=== PATIENT | female | born 1930 | race Caucasian/White ===

== ENCOUNTER 2016-08-22 11:14 | Observation (INO) | payer MEDICARE, OTHER ==
[~2016-08-22] VITALS: Ht 157.5 cm; Wt 45.6 kg
[2016-08-22] VITALS (9 sets, daily range): BP systolic 82–116; BP diastolic 49–80; PULSE 60–125; RESP 17–20; TEMP 96.7–97.9; O2SAT 95–100
[~2016-08-22 11:14] MED LIST: ALPH0.1S EACH EYE; DIFL0.0512 EACH EYE; LANS30CA PO; LEVO50TA4 PO; METHE500 PO; MIRA33504 PO; OXYB10TA PO; RANI150T PO; SYST0.4D2 EACH EYE; TEMA15CA PO; XARE15TA PO
[2016-08-22] MEDS ORDERED: TOVI4TAB PO (11:34)
[2016-08-22] MEDS ORDERED: SODIUM CHLOR 0.9% 1000 ML INJ 1,000 ML IV ONE (11:45)
--- NOTE | 2016-08-22 11:56 | PD ---
HPI Chief Complaint: Cardiac Complaint Time Seen by Provider: 11:27 Travel History International Travel<30 days: No Contact w/Intl Traveler<30days: No Traveled to known affect area: No History of Present Illness HPI This is an 86-year-old female who presents the emergency department with palpitations, lightheadedness and dizziness that started this morning. She said she started walking to the bathroom when she felt like her heart was racing and she felt like she was going into a tunnel. She says the lightheadedness gets much worse when she sits up or stands up. She feels best when she is laying flat in bed. She denies any shortness of breath. She did have an episode this morning where she had some pain that went from her right shoulder return her left and lasted for several seconds. She's never had pain like that before. She is not sure if she has atrial fibrillation. She thinks she was told one time that she had an episode and she was put on a medication which she couldn't tolerate it so she discontinued it. 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 She is on Xarelto also but she's not sure what for. She has been feeling somewhat unwell over the past few months with generalized weakness, loose stools and abdominal pain. She just had an endoscopy this week with a dilated her esophagus. PFSH Past Medical History Hx Anticoagulant Therapy: Yes (XARELTO) Atrial Fibrillation: Yes Anxiety: Yes Cardiovascular Problems: Yes (PACEMAKER) Chemotherapy: No Cerebrovascular Accident: Yes (TIA) Diabetes: No Diminished Hearing: Yes Gastrointestinal Disorders: Yes (CROHNS- gastroparesis) GERD: Yes Glaucoma: Yes (left eye) Genitourinary: Yes ("bladder problems") Respiratory: No Immunizations Current: No Migraines: Yes Thyroid Disease: Yes Menopausal: Yes Past Surgical History Appendectomy: Yes (194) Cardiac Surgery: Yes (PACEMAKER INSERTION- approx revised 6 yrs ago) Eye Surgery: Yes (CATARACT:RIGHT EYE 2001, LEFT EYE 2008) Hysterectomy: Yes Pacemaker: Yes (1985,three total) Social History Alcohol Use: Yes ("OCCASIONAL GLASS OF RED WINE WITH DINNER.") Tobacco Use: No (quit 30+ yrs ago smoked cigs) Substance Use: No Allergies-Medications (Allergen,Severity, Reaction): Coded Allergies: Aspirin (Verified Allergy, Severe, "throat closes", 2/6/17) Codeine (Verified Allergy, Severe, "throat closes", 08/22/16) Iodine (Verified Allergy, Severe, hives,throat swelling,sob, 08/22/16) Morphine (Verified Allergy, Severe, "throat closes", 08/22/16) Vancocin (Verified Allergy, Severe, 08/22/16) Vancomycin (Verified Allergy, Severe, 08/22/16) Ancef (Verified Adverse Reaction, Severe, "head", 08/22/16) Penicillin (Verified Adverse Reaction, Severe, "swelling of joints", ) Pentothal (Verified Adverse Reaction, Severe, "headache", 08/22/16) Reported Meds & Prescriptions Reported Meds & Active Scripts Active Reported Toviaz ER (Fesoterodine Fumarate) 4 mg Dolores 4 Mg PO DAILY Durezol Opth (Difluprednate Opth) 0.05% Emul 1 Drop EACH EYE BID Systane Gel Opth (Polyethylene Glycol-Propylene Opth) 0.4-0.3% Drops 1 Drop EACH EYE DAILY Lansoprazole 30 Mg Capdr 30 Mg PO DAILY Miralax Powder (Polyethylene Glycol 3350 Powder) 17 Gm Powd 17 Gm PO DAILY Mix and dissolve one measuring cap-ful (17 grams) in water or juice. Temazepam 15 Mg Cap 15 Mg PO HS PRN Xarelto (Rivaroxaban) 15 Mg Tab 5 Mg PO DAILY Methenamine Mandelate 500 Mg Tab 500 Mg PO BID Ranitidine (Ranitidine HCl) 150 Mg Tab 150 Mg PO BID Levothyroxine (Levothyroxine Sodium) 50 Mcg Tab 50 Mcg PO DAILY Review of Systems Except as stated in HPI: all other systems reviewed are Neg Physical Exam Narrative GENERAL: Frail elderly female in no acute distress SKIN: Pale, dry with skin tenting. HEAD: Atraumatic. Normocephalic. EYES: Pupils equal and round. No injection or drainage. ENT: Dry mucous membranes NECK: Trachea midline. CARDIOVASCULAR: Irregularly irregular. No murmur appreciated. RESPIRATORY: Clear to auscultation. Breath sounds equal bilaterally. GASTROINTESTINAL: Abdomen soft, non-tender, nondistended. MUSCULOSKELETAL: No obvious deformities. NEUROLOGICAL: Awake and alert. No obvious cranial nerve deficits. Moving all extremities. PSYCHIATRIC: Appropriate mood and affect; insight and judgment normal. Data Data Last Documented VS Vital Signs Date Time Temp Pulse Resp B/P Pulse Ox O2 Delivery O2 Flow Rate FiO2 08/22/16 12:43 90 20 100/72 96 08/22/16 11:30 97.9 Orders Complete Blood Count With Diff (08/22/16 11:36) Comprehensive Metabolic Panel (08/22/16 11:36) Thyroid Stimulating Hormone (08/22/16 11:36) Troponin I (08/22/16 11:36) Electrocardiogram (08/22/16 ) Urinalysis - C+S If Indicated (08/22/16 11:36) Cath For Specimen (08/22/16 11:36) Orthostatic Vital Signs (08/22/16 11:36) Sodium Chlor 0.9% 1000 Ml Inj (Ns 1000 M (08/22/16 11:45) Chest, Single Ap (08/22/16 ) Admit Order (Ed Use Only) (08/22/16 13:09) Place In Observation (08/22/16 ) Vital Signs (Adult) Q4H (08/22/16 13:09) Activity Oob With Assistance (08/22/16 13:09) Smeller / Telemetry .CONTINUOUS (08/22/16 13:09) Diet Heart Healthy (08/22/16 Lunch) Sodium Chlor 0.9% 1000 Ml Inj (Ns 1000 M (08/22/16 14:00) Sodium Chloride 0.9% Flush (Ns Flush) (08/22/16 13:15) Sodium Chloride 0.9% Flush (Ns Flush) (08/22/16 21:00) Acetaminophen (Tylenol) (08/22/16 13:15) Ondansetron Inj (Zofran Inj) (08/22/16 13:15) Basic Metabolic Panel (Bmp) (08/23/16 06:00) Creatine Kinase (Cpk) (08/22/16 13:09) Creatine Kinase (Cpk) (08/22/16 19:09) Troponin I (08/22/16 13:09) Troponin I (08/22/16 19:09) Pt Request For Service (08/22/16 13:09) Naloxone Inj (Narcan Inj) (08/22/16 13:15) Digoxin (Lanoxin) (08/22/16 13:15) Labs Laboratory Tests Test 08/22/16 08/22/16 11:45 12:30 White Blood Count 4.4 TH/MM3 Red Blood Count 3.76 MIL/MM3 Hemoglobin 10.8 GM/DL Hematocrit 33.3 % Mean Corpuscular Volume 88.6 FL Mean Corpuscular Hemoglobin 28.8 PG Mean Corpuscular Hemoglobin 32.5 % Concent Red Cell Distribution Width 13.4 % Platelet Count 198 TH/MM3 Mean Platelet Volume 7.3 FL Neutrophils (%) (Auto) 60.3 % Lymphocytes (%) (Auto) 21.4 % Monocytes (%) (Auto) 10.9 % Eosinophils (%) (Auto) 6.0 % Basophils (%) (Auto) 1.4 % Neutrophils # (Auto) 2.6 TH/MM3 Lymphocytes # (Auto) 0.9 TH/MM3 Monocytes # (Auto) 0.5 TH/MM3 Eosinophils # (Auto) 0.3 TH/MM3 Basophils # (Auto) 0.1 TH/MM3 CBC Comment DIFF FINAL Differential Comment Sodium Level 145 MEQ/L Potassium Level 4.0 MEQ/L Chloride Level 110 MEQ/L Carbon Dioxide Level 25.9 MEQ/L Anion Gap 9 MEQ/L Blood Urea Nitrogen 13 MG/DL Creatinine 0.94 MG/DL Estimat Glomerular Filtration 56 ML/MIN Rate Random Glucose 101 MG/DL Calcium Level 8.3 MG/DL Total Bilirubin 0.3 MG/DL Aspartate Amino Transf 21 U/L (AST/SGOT) Alanine Aminotransferase 14 U/L (ALT/SGPT) Alkaline Phosphatase 40 U/L Troponin I 0.02 NG/ML Total Protein 6.3 GM/DL Albumin 2.9 GM/DL Thyroid Stimulating Hormone 2.060 uIU/ML 3rd Gen Urine Color STRAW Urine Turbidity CLEAR Urine pH 6.5 Urine Specific [place] 1.006 Urine Protein NEG mg/dL Urine Glucose (UA) NEG mg/dL Urine Ketones NEG mg/dL Urine Occult Blood NEG Urine Nitrite NEG Urine Bilirubin NEG Urine Leukocyte Esterase NEG Urine WBC 0-2 /hpf Urine Hyaline Casts 3-5 /lpf Urine Mucus FEW /lpf Microscopic Urinalysis Comment CATH-CULT NOT IND MDM Medical Decision Making Medical Screen Exam Complete: Yes Emergency Medical Condition: Yes Interpretation(s) Afebrile, tachycardic, normotensive Mild anemia Electrolytes are reassuring Urinalysis is negative for infection EKG: Atrial fibrillation with RVR Differential Diagnosis Atrial fibrillation, orthostatic hypotension, dehydration, urinary tract infection Narrative Course This is an 86-year-old female who presents to the emergency department with palpitations that started today. She has evidence of atrial fibrillation on her EKG. She is placed in a monitor and an IV was established. Labs are obtained which are reassuring. Heart heart rate is in the 100s to 120 range but she appears very dehydrated and she somewhat hypotensive. She is given a liter of IV hydration. I think she requires observation on telemetry with gentle rate control and I suspect her symptoms are in the setting of atrial fibrillation. Diagnosis Primary Impression: Atrial fibrillation with RVR Admitting Information Admitting Physician Requests: Observation Lilian Webster MD Aug 22, 2016 11:56
[2016-08-22 12:02] LABS: AUTOMATED NEUTROPHIL # 2.6 TH/MM3 (1.8-7.7); BASOPHIL # 0.1 TH/MM3 (0-0.2); BASOPHIL % 1.4 % (0.0-2.0); EOSINOPHIL # 0.3 TH/MM3 (0-0.4); HEMATOCRIT 33.3 % (35.0-46.0); HEMO FLAGS DIFF FINAL; LYMPH % 21.4 % (9.0-44.0); LYMPHOCYTE # 0.9 TH/MM3 (1.0-4.8); MEAN CELL VOLUME 88.6 FL (80.0-100.0); MEAN CORPUSCULAR HEMOGLOBIN 28.8 PG (27.0-34.0); MEAN CORPUSCULAR HGB CONC 32.5 % (32.0-36.0); MONO % 10.9 % (0.0-8.0); NEUT % 60.3 % (16.0-70.0); PLATELET COUNT 198 TH/MM3 (150-450); RED BLOOD COUNT 3.76 MIL/MM3 (4.00-5.30); RED CELL DISTRIBUTION WIDTH 13.4 % (11.6-17.2); WHITE BLOOD COUNT 4.4 TH/MM3 (4.0-11.0)
[2016-08-22 12:16] LABS: CHLORIDE 110 MEQ/L (98-107); SODIUM (NA) 145 MEQ/L (136-145)
[2016-08-22 12:21] LABS: ANION GAP 9 MEQ/L (5-15); BICARBONATE 25.9 MEQ/L (21.0-32.0)
[2016-08-22 12:22] LABS: BLOOD UREA NITROGEN 13 MG/DL (7-18)
[2016-08-22 12:24] LABS: ALT (GPT) 14 U/L (10-53); AST (GOT) 21 U/L (15-37); GLOMERULAR FILTRATION RATE 56 ML/MIN (>89)
[2016-08-22 12:26] LABS: TOTAL BILIRUBIN ADULT 0.3 MG/DL (0.2-1.0)
[2016-08-22 12:27] LABS: ALKALINE PHOSPHATASE 40 U/L (45-117)
[2016-08-22 12:44] LABS: BLOOD, URINE NEG (NEG); GLUCOSE,URINE NEG (NEG); KETONE, URINE NEG (NEG); NITRITE,URINE NEG (NEG); PH, URINE 6.5 (5.0-8.5)
[2016-08-22 12:51] LABS: URINE COLOR STRAW (YELLW/STRAW)
[2016-08-22 12:53] LABS: COMMENT (UR) CATH-CULT NOT IND; CULTURE IF INDICATED CATH CULTURE NOT IND; MUCUS URINE FEW /lpf (OCC); WBC, URINE 0-2 /hpf (0-5)
[2016-08-22] MEDS ORDERED: SODIUM CHLORIDE 0.9% FLUSH 5 ML FLUSH FLUSH PRN (13:15)
[2016-08-22] MEDS ORDERED: TEMAZEPAM 15 MG CAP PO PRN (13:15)
[2016-08-22] MEDS ORDERED: ACETAMINOPHEN 325 MG TAB PO PRN (13:15)
[2016-08-22] MEDS ORDERED: NALOXONE HCL 0.4 MG/ML AMP IV PRN (13:15)
[2016-08-22] MEDS ORDERED: ONDANSETRON HCL 4 MG/2 ML VIAL IVP PRN (13:15)
[2016-08-22] MEDS: DIGOXIN 0.125 MG TAB PO SCH (13:28)
--- NOTE | 2016-08-22 13:35 | RADHPO ---
EXAM DATE/TIME: 08/22/2016 12:55 [facility] COMPARISON: CHEST SINGLE AP, July 07, 2016, 21:52. INDICATIONS: Heart palpitations. MEDICAL HISTORY: Cerebrovascular disease. Crohn's disease. Gastroparesis. GERD. TIA.A-fib. SURGICAL HISTORY: Pacemaker. Appendectomy. Hysterectomy. ENCOUNTER: Initial ACUITY: 1 day PAIN SCORE: 0/10 LOCATION: Bilateral chest FINDINGS: Pacemaker is implanted in the left chest. Heart is minimally enlarged. Pulmonary vascularity is nor mal. Scattered granulomas are seen in the right base. Portion of bony skeleton visualized shows only degenerative changes. CONCLUSION: Mild compensated cardiomegaly. Olegario Spencer MD FACR on August 22, 2016 at 13:30 Board Certified Radiologist. This report was verified electronically.
[2016-08-22] MEDS: SODIUM CHLOR 0.9% 1000 ML INJ 1,000 ML IV SCH ×2 (14:02→23:19)
--- NOTE | 2016-08-22 14:06 | HHI.HP ---
[facility] Primary Care Physician Jennifer Gibbs MD Admission Diagnosis lightheadedness, atrial fibrillation Diagnoses: (1) Atrial fibrillation with RVR Travel History International Travel<30 Days: No Contact w/Intl Traveler <30 Da: No Traveled to Known Affected Are: No History of Present Illness This is a very pleasant 86 year-old female with past medical history of hypothyroidism, pacemaker for arrhythmia who presents to the ER today complaining of a several day history of intermittent palpitations with lightheadedness. The patient states that she has been getting these episodes for several days. She chronically has low blood pressure and often feels dizzy when she stands up. 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 The patient states that she had an episode of atrial fibrillation once 4 years ago. She does take Xarelto but only 5 mg per day. She denies any chest pain, ankle edema. Denies any recent falls although she did have to sit down several days ago to ease the dizziness. She lives with her son. She last saw Dr. Smith 3 weeks ago. In the emergency department she was found to be in atrial fibrillation with rate anywhere from 80-120. She did not receive any Cardizem because her blood pressure was borderline low. Review of Systems Constitutional: COMPLAINS OF: Dizziness, DENIES: Fever, Chills Respiratory: DENIES: Cough, Shortness of breath Cardiovascular: COMPLAINS OF: Palpitations, DENIES: Chest pain Gastrointestinal: DENIES: Abdominal pain, Vomiting Genitourinary: DENIES: Urgency, Dysuria Musculoskeletal: DENIES: Back pain, Neck pain Neurologic: DENIES: Abnormal gait, Headache, Localized weakness Psychiatric: DENIES: Anxiety, Confusion Past Family Social History Past Medical History Paroxysmal atrial fibrillation Pacemaker History of diverticulitis Gastroparesis Esophageal stricture status post recent dilation Frequent UTIs History of TIAs Urinary incontinence Past Surgical History Pacemaker, hysterectomy, appendectomy Reported Medications Allergies Coded Allergies Type Severity Reaction Last Updated Verified Aspirin Allergy Severe "throat closes" 08/22/16 Yes Codeine Allergy Severe "throat closes" 08/22/16 Yes Iodine Allergy Severe hives,throat swelling,sob 08/22/16 Yes Morphine Allergy Severe "throat closes" 08/22/16 Yes Vancocin Allergy Severe 08/22/16 Yes Vancomycin Allergy Severe 08/22/16 Yes Ancef Adverse Reaction Severe "head" 08/22/16 Yes Penicillin Adverse Reaction Severe "swelling of joints" 08/22/16 Yes Pentothal Adverse Reaction Severe "headache" 08/22/16 Yes Active Scripts Medications Dose Route/Sig Days Date Category Dose Instructions Toviaz ER (Fesoterodine Fumarate) 4 mg Dolores 4 Mg PO DAILY 08/22/16 Reported Durezol Opth (Difluprednate Opth) 0.05% Emul 1 Drop EACH EYE BID 07/07/16 Reported Systane Gel Opth (Polyethylene Glycol-Propylene Opth) 0.4-0.3% Drops 1 Drop EACH EYE DAILY 07/07/16 Reported Lansoprazole 30 Mg Capdr 30 Mg PO DAILY 07/07/16 Reported Miralax Powder (Polyethylene Glycol 3350 Powder) 17 Gm Powd 17 Gm PO DAILY 07/07/16 Reported Mix and dissolve one measuring cap-ful (17 grams ) in water or juice. Temazepam 15 Mg Cap 15 Mg PO HS PRN 07/07/16 Reported Xarelto (Rivaroxaban) 15 Mg Tab 5 Mg PO DAILY 07/07/16 Reported Methenamine Mandelate 500 Mg Tab 500 Mg PO BID 07/07/16 Reported Ranitidine (Ranitidine HCl) 150 Mg Tab 150 Mg PO BID 07/07/16 Reported Levothyroxine (Levothyroxine Sodium) 50 Mcg Tab 50 Mcg PO DAILY 07/07/16 Reported Allergies: Coded Allergies: Aspirin (Verified Allergy, Severe, "throat closes", 08/22/16) Codeine (Verified Allergy, Severe, "throat closes", 08/22/16) Iodine (Verified Allergy, Severe, hives,throat swelling,sob, 08/22/16) Morphine (Verified Allergy, Severe, "throat closes", 08/22/16) Vancocin (Verified Allergy, Severe, 08/22/16) Vancomycin (Verified Allergy, Severe, 08/22/16) Ancef (Verified Adverse Reaction, Severe, "head", 08/22/16) Penicillin (Verified Adverse Reaction, Severe, "swelling of joints", ) Pentothal (Verified Adverse Reaction, Severe, "headache", 08/22/16) Family History Reviewed and noncontributory Social History She quit smoking 45 years ago after smoking for 25 years. Physical Exam Vital Signs Vital Signs Date Time Temp Pulse Resp B/P Pulse Ox O2 Delivery O2 Flow Rate FiO2 08/22/16 13:37 125 20 104/55 100 08/22/16 12:43 90 20 100/72 96 08/22/16 11:51 103 20 82/63 122 20 107/80 08/22/16 11:30 97.9 122 20 101/68 100 Physical Exam GENERAL: Well-nourished, well-developed very pleasant elderly petite female patient in no apparent distress. SKIN: Warm and dry. HEAD: Normocephalic. EYES: No scleral icterus. No injection or drainage. NECK: Supple, trachea midline. No JVD or lymphadenopathy. CARDIOVASCULAR: Irregularly irregular rate without murmurs rubs or gallops. RESPIRATORY: Breath sounds equal and clear to auscultation bilaterally. No accessory muscle use. GASTROINTESTINAL: Abdomen soft, non-tender, nondistended. EXTREMITIES: No cyanosis, or edema. NEUROLOGICAL: Awake, alert, and oriented x 3. Non-focal. Laboratory Laboratory Tests Test 08/22/16 08/22/16 11:45 12:30 White Blood Count 4.4 Red Blood Count 3.76 Hemoglobin 10.8 Hematocrit 33.3 Mean Corpuscular Volume 88.6 Mean Corpuscular Hemoglobin 28.8 Mean Corpuscular Hemoglobin 32.5 Concent Red Cell Distribution Width 13.4 Platelet Count 198 Mean Platelet Volume 7.3 Neutrophils (%) (Auto) 60.3 Lymphocytes (%) (Auto) 21.4 Monocytes (%) (Auto) 10.9 Eosinophils (%) (Auto) 6.0 Basophils (%) (Auto) 1.4 Neutrophils # (Auto) 2.6 Lymphocytes # (Auto) 0.9 Monocytes # (Auto) 0.5 Eosinophils # (Auto) 0.3 Basophils # (Auto) 0.1 CBC Comment DIFF FINAL Differential Comment Sodium Level 145 Potassium Level 4.0 Chloride Level 110 Carbon Dioxide Level 25.9 Anion Gap 9 Blood Urea Nitrogen 13 Creatinine 0.94 Estimat Glomerular Filtration 56 Rate Random Glucose 101 Calcium Level 8.3 Total Bilirubin 0.3 Aspartate Amino Transf 21 (AST/SGOT) Alanine Aminotransferase 14 (ALT/SGPT) Alkaline Phosphatase 40 Troponin I 0.02 Total Protein 6.3 Albumin 2.9 Thyroid Stimulating Hormone 2.060 3rd Gen Urine Color STRAW Urine Turbidity CLEAR Urine pH 6.5 Urine Specific [place] 1.006 Urine Protein NEG Urine Glucose (UA) NEG Urine Ketones NEG Urine Occult Blood NEG Urine Nitrite NEG Urine Bilirubin NEG Urine Leukocyte Esterase NEG Urine WBC 0-2 Urine Hyaline Casts 3-5 Urine Mucus FEW Microscopic Urinalysis Comment CATH-CULT NOT IND Result Diagram: 08/22/16 1145 08/22/16 1145 Assessment and Plan Assessment and Plan -Atrial fibrillation with mildly elevated ventricular rate associated with palpitations lightheadedness and dizziness - I discussed with Dr. Smith. He will be having his nurse and office records over. He agrees with loading her with a small dose of digoxin. Continue Xarelto. Additionally will hydrate her lightly overnight. Get a PT evaluation. She can likely be discharged home tomorrow if she is doing well. -Gastroparesis -Esophageal stricture status post recent dilation -Frequent UTIs -History of TIAs -Urinary incontinence -DVT prophylaxis. Will continue on Xarelto Nevaeh Knowles MD Aug 22, 2016 14:06
[2016-08-22] MEDS ORDERED: DIGOXIN 0.125 MG TAB PO ONE (20:30)
[2016-08-22] MEDS ORDERED: DIFLUPREDNATE OPTH EACH EYE SCH (21:00)
[2016-08-22] MEDS: FAMOTIDINE 20 MG TAB PO SCH (21:14)
[2016-08-22] MEDS: SODIUM CHLORIDE 0.9% FLUSH 5 ML FLUSH FLUSH SCH (21:14)
[2016-08-23] VITALS: BP 116/55; PULSE 60; RESP 16; TEMP 97.4; O2SAT 95
[2016-08-23 04:00] VITALS: BP 116/60; PULSE 64; RESP 16; TEMP 97.4; O2SAT 95
[2016-08-23] MEDS ORDERED: LEVOTHYROXINE SODIUM 50 MCG TAB PO SCH (06:00)
[2016-08-23 07:13] LABS: POTASSIUM 3.7 MEQ/L (3.5-5.1)
[2016-08-23 07:25] LABS: BICARBONATE 25.6 MEQ/L (21.0-32.0)
[2016-08-23 08:00] VITALS: PULSE 60
[2016-08-23 08:12] VITALS: BP 145/64; PULSE 59; RESP 17; TEMP 97.1; O2SAT 98
[2016-08-23 08:30] LABS: DIGOXIN 0.4 NG/ML (0.8-2.0)
[2016-08-23] MEDS ORDERED: RIVAROXABAN 15 MG TAB PO SCH (09:00)
[2016-08-23] MEDS ORDERED: POLYETHYLENE GLYCOL PROPYLENE OPTH EACH EYE SCH (09:00)
[2016-08-23] MEDS: SODIUM CHLORIDE 0.9% FLUSH 5 ML FLUSH FLUSH SCH (09:00)
[2016-08-23] MEDS ORDERED: RIVAROXABAN 10 MG TAB PO SCH (09:00)
[2016-08-23] MEDS ORDERED: PANTOPRAZOLE SOD 40 MG DELAYED RELEASE TAB PO SCH (09:00)
[2016-08-23] MEDS ORDERED: POLYETHYLENE GLYCOL 17 GM PKG PO SCH (09:00)
[2016-08-23] MEDS ORDERED: TOLTERODINE TARTRATE 4 MG CAP LA PO SCH (09:00)
[2016-08-23] MEDS: FAMOTIDINE 20 MG TAB PO SCH (09:22)
[2016-08-23] MEDS: SODIUM CHLOR 0.9% 1000 ML INJ 1,000 ML IV SCH (09:22)
[2016-08-23] MEDS: DIGOXIN 0.125 MG TAB PO SCH (09:23)
--- NOTE | 2016-08-23 10:02 | HHI.FF ---
Face to Face Verification Diagnosis: (1) Atrial fibrillation with RVR Physical Therapy Order: Evaluate and Treat Home Health Nursing Order: Medication education-adverse effect Nursing assessment with vital signs I have seen patient Jo-Ann Machado on 08/23/16. My clinical findings support the need for the requested home health care services because: Deconditioned w/ increased weakness I certify that my clinical findings support that this patient is homebound because: Unsteady gait/balance Nevaeh Knowles MD Aug 23, 2016 10:02
[2016-08-23] MEDS ORDERED: XARE15TA PO (10:04)
[2016-08-23] MEDS ORDERED: DIGO0.12 PO (10:04)
--- NOTE | 2016-08-23 10:12 | HHI.PR ---
Subjective Remarks The patient converted to normal sinus rhythm last night. She states she's feeling much better today. No further dizziness. Blood pressures improved. Objective Vitals Vital Signs Date Time Temp Pulse Resp B/P Pulse Ox O2 Delivery O2 Flow Rate FiO2 08/23/16 08:12 97.1 59 17 145/64 98 08/23/16 08:00 60 08/23/16 04:00 97.4 64 16 116/60 95 08/23/16 00:00 97.4 60 16 116/55 95 08/22/16 21:00 88 08/22/16 20:00 96.8 69 18 116/63 100 08/22/16 17:33 96.7 86 17 109/55 97 08/22/16 16:23 60 20 99/50 98 08/22/16 14:30 65 20 94/49 95 Room Air 08/22/16 13:37 125 20 104/55 100 08/22/16 12:43 90 20 100/72 96 08/22/16 11:51 103 20 82/63 122 20 107/80 08/22/16 11:30 97.9 122 20 101/68 100 I/O 08/22/16 08/22/16 08/22/16 08/23/16 08/23/16 08/23/16 07:00 15:00 23:00 07:00 15:00 23:00 Intake Total 1000 ml Balance 1000 ml Intake IV Total 1000 ml # Voids 3 # Bowel Movements 1 Result Diagram: 08/22/16 1145 08/23/16 0540 Objective Remarks GENERAL: Well-nourished, well-developed pleasant elderly female patient. SKIN: Warm and dry. HEAD: Normocephalic. EYES: No scleral icterus. No injection or drainage. NECK: Supple, trachea midline. No JVD or lymphadenopathy. CARDIOVASCULAR: Regular rate and rhythm without murmurs, gallops, or rubs. RESPIRATORY: Breath sounds equal and clear to auscultation bilaterally. No accessory muscle use. GASTROINTESTINAL: Abdomen soft, non-tender, nondistended. EXTREMITIES: No cyanosis, or edema. NEUROLOGICAL: Awake, alert, and oriented x 3. Non-focal. A/P Problem List: (1) Atrial fibrillation with RVR ICD Code: I48.91 Status: Acute Assessment and Plan -Atrial fibrillation with mildly elevated ventricular rate associated with palpitations lightheadedness and dizziness - I discussed with Dr. Smith. The patient will continue on digoxin 0.125 mg daily which was started here. She is to follow-up with him within 1 week. Continue Xarelto. She may have some benign positional vertigo as the physical therapist noted nystagmus yesterday. I will order some home health care and home physical therapy for her as well to which the patient is agreeable. She may be discharged home this afternoon. -Hypertension. Resolved. The patient is very petite, appeared to be slightly dehydrated. Blood pressure is now improved after receiving IV fluid hydration overnight. Nevaeh Knowles MD Aug 23, 2016 10:12
--- NOTE | 2016-08-24 23:48 | EKG ---
Date Performed: 08/22/2016 Time Performed: 11:26:14 PTAGE: 86 years EKG: Atrial fibrillation with rapid ventricular response Septal ST changes are nonspecific Abnor mal ECG PREVIOUS TRACING : 07/07/2016 21.09 Compared to the previous tracing, previously atrial paced DOCTOR: Dominick Bhatt Interpretating Date/Time 08/24/2016 23:46:20
== END 2016-08-23 12:15 | disposition home health service (06) ==
LOC: PHED 11:14 → PHEDA 13:10 → PH3B 16:38 → PH3A 16:43
PROVIDERS: ADMIT Family Medicine; ATTEND Family Medicine
DX: I48.91 Unspecified atrial fibrillation (principal); R42 Dizziness and giddiness; E86.0 Dehydration; F41.9 Anxiety disorder, unspecified; K50.90 Crohn's disease, unspecified, without complications; K21.9 Gastro-esophageal reflux disease without esophagitis; E03.9 Hypothyroidism, unspecified; R32 Unspecified urinary incontinence; Z79.01 Long term (current) use of anticoagulants; Z95.0 Presence of cardiac pacemaker; Z86.73 Personal history of transient ischemic attack (TIA), and cerebral infarction without residual deficits; Z87.440 Personal history of urinary (tract) infections
CPT/HCPCS: 71010; 80048; 80053; 80162; 81001; 82550; 84443; 84484; 85025; 93005; 96360; 97110; 97116; 97162; 99285; G0378; G8987; G8988; J7030; P9612

== ENCOUNTER → 2016-10-03 | Outpatient (CLI) | payer MEDICARE, OTHER ==
[~2016-10-03] MED LIST changes: -ALPH0.1S EACH EYE; +DIFL0.0512 LEFT EYE; +DIGO0.12 PO; +MACR100C3 PO; +NITR100C4 PO; -OXYB10TA PO; +TOVI4TAB PO
[2016-10-03 12:50] LABS: AUTOMATED NEUTROPHIL # 2.3 TH/MM3 (1.8-7.7); BASOPHIL % 0.9 % (0.0-2.0); EOSINOPHIL # 0.3 TH/MM3 (0-0.4); EOSINOPHIL % 6.9 % (0.0-4.0); HEMATOCRIT 32.1 % (35.0-46.0); HEMO FLAGS DIFF FINAL; LYMPH % 26.8 % (9.0-44.0); LYMPHOCYTE # 1.1 TH/MM3 (1.0-4.8); MEAN CELL VOLUME 88.1 FL (80.0-100.0); MEAN CORPUSCULAR HEMOGLOBIN 30.4 PG (27.0-34.0); MEAN CORPUSCULAR HGB CONC 34.4 % (32.0-36.0); MONO % 10.1 % (0.0-8.0); NEUT % 55.3 % (16.0-70.0); PLATELET COUNT 163 TH/MM3 (150-450); RED BLOOD COUNT 3.64 MIL/MM3 (4.00-5.30); WHITE BLOOD COUNT 4.1 TH/MM3 (4.0-11.0)
[2016-10-03 13:40] LABS: ALKALINE PHOSPHATASE 44 U/L (45-117); ALT (GPT) 18 U/L (10-53); ANION GAP 8 MEQ/L (5-15); AST (GOT) 26 U/L (15-37); BICARBONATE 28.5 MEQ/L (21.0-32.0); BLOOD UREA NITROGEN 16 MG/DL (7-18); CHLORIDE 107 MEQ/L (98-107); FREE T4 1.27 NG/DL (0.76-1.46); GLOMERULAR FILTRATION RATE 55 ML/MIN (>89); GLUCOSE,FASTING 88 MG/DL (74-99); HDL CHOLESTEROL 81.9 MG/DL (40.0-60.0); LDL CHOLESTEROL 94 MG/DL (0-99); POTASSIUM 4.1 MEQ/L (3.5-5.1); SODIUM (NA) 143 MEQ/L (136-145); TOTAL BILIRUBIN ADULT 0.4 MG/DL (0.2-1.0)
== END ==
LOC: PLAB 09:47
PROVIDERS: ATTEND Family Medicine
DX: E78.5 Hyperlipidemia, unspecified (principal); E03.9 Hypothyroidism, unspecified; D64.9 Anemia, unspecified; M81.0 Age-related osteoporosis without current pathological fracture; E55.9 Vitamin D deficiency, unspecified
CPT/HCPCS: 36415; 80053; 80061; 82306; 82607; 82746; 84439; 84443; 85025

== ENCOUNTER 2016-12-07 19:52 | Emergency (ER) | payer MEDICARE, OTHER ==
[~2016-12-07] VITALS: Ht 157.5 cm; Wt 51.0 kg
[~2016-12-07 19:52] MED LIST changes: -DIFL0.0512 LEFT EYE; -MACR100C3 PO; -NITR100C4 PO
[2016-12-07 20:23] VITALS: PULSE 77; RESP 18; TEMP 97.8; O2SAT 99
--- NOTE | 2016-12-07 21:26 | PD ---
HPI Chief Complaint: Fall Time Seen by Provider: 21:23 Travel History International Travel<30 days: No Contact w/Intl Traveler<30days: No Traveled to known affect area: No History of Present Illness HPI The patient is an 86-year-old female who has been using a walker but graduated to walking without her walker recently. She fell in the bathroom this morning, she did not suffer any head trauma or lose consciousness. The patient is on Xarelto for atrial fibrillation. She suffered a thin skin laceration on her right elbow and hit her buttocks bilaterally but states she doubts that anything is broken. PFSH Past Medical History Hx Anticoagulant Therapy: Yes (xarelto) Atrial Fibrillation: Yes Anxiety: Yes Cardiovascular Problems: Yes (Pacemaker) Chemotherapy: No Cerebrovascular Accident: Yes (TIA) Diabetes: No Diminished Hearing: Yes Gastrointestinal Disorders: Yes (CROHNS- gastroparesis) GERD: Yes Glaucoma: Yes (left eye) Genitourinary: Yes ("bladder problems") Respiratory: No Immunizations Current: No Migraines: Yes Thyroid Disease: Yes ?: Not Menopausal: Yes Past Surgical History Appendectomy: Yes (194) Cardiac Surgery: Yes (PACEMAKER INSERTION- approx revised 6 yrs ago) Eye Surgery: Yes (CATARACT:RIGHT EYE 2001, LEFT EYE 2008) Hysterectomy: Yes Pacemaker: Yes (1985,three total) Social History Alcohol Use: Yes ("OCCASIONAL GLASS OF RED WINE WITH DINNER.") Tobacco Use: No (quit 30+ yrs ago smoked cigs) Substance Use: No Allergies-Medications (Allergen,Severity, Reaction): Coded Allergies: Aspirin (Verified Allergy, Severe, "throat closes", 12/07/16) Codeine (Verified Allergy, Severe, "throat closes", 12/07/16) Iodine (Verified Allergy, Severe, hives,throat swelling,sob, 12/07/16) Morphine (Verified Allergy, Severe, "throat closes", 12/07/16) Vancocin (Verified Allergy, Severe, 12/07/16) Vancomycin (Verified Allergy, Severe, 12/07/16) Ancef (Verified Adverse Reaction, Severe, "head", 12/07/16) Penicillin (Verified Adverse Reaction, Severe, "swelling of joints", ) Pentothal (Verified Adverse Reaction, Severe, "headache", 5/24/17) Reported Meds & Prescriptions Reported Meds & Active Scripts Active Digoxin 0.125 Mg Tab 0.125 Mg PO DAILY Xarelto (Rivaroxaban) 15 Mg Tab 15 Mg PO DAILY Reported Toviaz ER (Fesoterodine Fumarate) 4 mg Dolores 4 Mg PO DAILY Durezol Opth (Difluprednate Opth) 0.05% Emul 1 Drop EACH EYE BID Systane Gel Opth (Polyethylene Glycol-Propylene Opth) 0.4-0.3% Drops 1 Drop EACH EYE DAILY Lansoprazole 30 Mg Capdr 30 Mg PO DAILY Miralax Powder (Polyethylene Glycol 3350 Powder) 17 Gm Powd 17 Gm PO DAILY Mix and dissolve one measuring cap-ful (17 grams) in water or juice. Temazepam 15 Mg Cap 15 Mg PO HS PRN Methenamine Mandelate 500 Mg Tab 500 Mg PO BID Ranitidine (Ranitidine HCl) 150 Mg Tab 150 Mg PO BID Levothyroxine (Levothyroxine Sodium) 50 Mcg Tab 50 Mcg PO DAILY Review of Systems Except as stated in HPI: all other systems reviewed are Neg Physical Exam Narrative GENERAL: Well-nourished, well-developed patient in slight apparent distress with her bilateral buttocks pain and right elbow thin skin laceration. Her vital signs are normal. SKIN: Focused skin assessment warm/dry. There is a 2 x 2 cm thin skin laceration over the right elbow. No associated bony deformity or tenderness is present. The patient has full range of motion of the right elbow HEAD: Normocephalic. EYES: No scleral icterus. No injection or drainage. NECK: Supple, trachea midline. No JVD or lymphadenopathy. CARDIOVASCULAR: Regular rate and rhythm without murmurs, gallops, or rubs. RESPIRATORY: Breath sounds equal bilaterally. No accessory muscle use. GASTROINTESTINAL: Abdomen soft, non-tender, nondistended. MUSCULOSKELETAL: No cyanosis, or edema. The patient has full range of motion of her right elbow. BACK: Nontender without obvious deformity. No CVA tenderness. She has bilateral buttocks tenderness but no ecchymoses are seen. She walks around with a wide spaced gait, she does have some pain in her buttocks when she walks. Data Data Last Documented VS Vital Signs Date Time Temp Pulse Resp B/P Pulse Ox O2 Delivery O2 Flow Rate FiO2 12/07/16 21:15 Room Air 12/07/16 20:23 97.8 77 18 99 Orders Wound Care (12/07/16 21:27) Tetanus/Diphtheria Tox Adult (Tetanus/Di (12/07/16 21:30) MDM Medical Decision Making Medical Screen Exam Complete: Yes Emergency Medical Condition: Yes Medical Record Reviewed: Yes Differential Diagnosis Fracture elbowunlikely, contusion elbow, thin skin laceration right elbow, contusion buttocks, fracture pelvishighly unlikely Narrative Course The patient has a thin skin laceration of her elbow and contusion of the buttocks. Diagnosis Primary Impression: Laceration of elbow Additional Impression: Contusion of buttock Additional Instructions: Keep the bandage on for 3 days and then change the management daily. If you have any problems follow up with her primary care physician or return to emergency department. Disposition: 01 DISCHARGE HOME Condition: Stable Irving Dewey MD December 07, 2016 21:26
[2016-12-07] MEDS ORDERED: TETANUS/DIPHTHERIA TOXOID ADULT 0.5 ML VIAL IM ONE (21:30)
[2016-12-07] MEDS ORDERED: DIFL0.0512 LEFT EYE (21:36)
[2016-12-07 21:48] LABS: BLOOD, URINE NEG (NEG); GLUCOSE,URINE NEG (NEG); KETONE, URINE TRACE mg/dL (NEG); NITRITE,URINE NEG (NEG)
[2016-12-07 21:56] LABS: BACTERIA, URINE OCC /hpf; RBC, URINE 0-3 /hpf (0-3); SQUAMOUS EPITHELIAL CELL URINE 0-5 /hpf (0-5); URINE COLOR YELLOW (YELLW/STRAW)
[2016-12-07 21:57] LABS: COMMENT (UR) CULTURE INDICATED; CULTURE IF INDICATED CULTURE INDICATED
[2016-12-07] MEDS ORDERED: MACR100C3 PO (22:39)
[2016-12-07] MEDS ORDERED: NITR100C4 PO (22:44)
[2016-12-07] MEDS ORDERED: NITROFURANTOIN MONOHYD MACROCR 100 MG CAP PO ONE (23:00)
== END 2016-12-07 23:15 | disposition home or self-care (01) ==
LOC: PHED 19:52
DX: S51.011A Laceration without foreign body of right elbow, initial encounter (principal); S30.0XXA Contusion of lower back and pelvis, initial encounter; N39.0 Urinary tract infection, site not specified; I48.91 Unspecified atrial fibrillation; K21.9 Gastro-esophageal reflux disease without esophagitis; K50.90 Crohn's disease, unspecified, without complications; Z23 Encounter for immunization; W18.30XA Fall on same level, unspecified, initial encounter; Y92.091 Bathroom in other non-institutional residence as the place of occurrence of the external cause
CPT/HCPCS: 81001; 87086; 90471; 90714

== ENCOUNTER → 2016-12-26 | Outpatient (CLI) | payer MEDICARE, OTHER ==
[~2016-12-26] MED LIST changes: +DIFL0.0512 LEFT EYE; -LANS30CA PO; +MACR100C3 PO; -MIRA33504 PO; +NITR100C4 PO; -TOVI4TAB PO
[2016-12-26 11:16] LABS: AUTOMATED NEUTROPHIL # 3.1 TH/MM3 (1.8-7.7); BASOPHIL % 0.9 % (0.0-2.0); EOSINOPHIL # 0.1 TH/MM3 (0-0.4); EOSINOPHIL % 3.2 % (0.0-4.0); HEMO FLAGS DIFF FINAL; LYMPH % 17.8 % (9.0-44.0); LYMPHOCYTE # 0.8 TH/MM3 (1.0-4.8); MEAN CELL VOLUME 89.6 FL (80.0-100.0); MEAN CORPUSCULAR HGB CONC 32.4 % (32.0-36.0); MONO % 11.3 % (0.0-8.0); NEUT % 66.8 % (16.0-70.0); PLATELET COUNT 180 TH/MM3 (150-450); RED BLOOD COUNT 3.68 MIL/MM3 (4.00-5.30); RED CELL DISTRIBUTION WIDTH 14.2 % (11.6-17.2); WHITE BLOOD COUNT 4.6 TH/MM3 (4.0-11.0)
[2016-12-26 11:49] LABS: ANION GAP 9 MEQ/L (5-15); AST (GOT) 24 U/L (15-37); BICARBONATE 27.5 MEQ/L (21.0-32.0); BLOOD UREA NITROGEN 16 MG/DL (7-18); CHLORIDE 107 MEQ/L (98-107); GLOMERULAR FILTRATION RATE 62 ML/MIN (>89); GLUCOSE,FASTING 94 MG/DL (74-99); POTASSIUM 4.3 MEQ/L (3.5-5.1); SODIUM (NA) 143 MEQ/L (136-145)
[2016-12-26 12:15] LABS: ALKALINE PHOSPHATASE 47 U/L (45-117); ALT (GPT) 17 U/L (10-53); FREE T4 1.14 NG/DL (0.76-1.46); HDL CHOLESTEROL 89.3 MG/DL (40.0-60.0); LDL CHOLESTEROL 117 MG/DL (0-99); TOTAL BILIRUBIN ADULT 0.4 MG/DL (0.2-1.0)
== END ==
LOC: PLAB 09:48
PROVIDERS: ATTEND Family Medicine
DX: E78.5 Hyperlipidemia, unspecified (principal); E03.9 Hypothyroidism, unspecified; M81.0 Age-related osteoporosis without current pathological fracture; E55.9 Vitamin D deficiency, unspecified; D64.9 Anemia, unspecified
CPT/HCPCS: 36415; 80053; 80061; 82306; 82607; 82746; 84439; 84443; 85025

== ENCOUNTER → 2017-04-03 | Outpatient (CLI) | payer MEDICARE, OTHER ==
[~2017-04-03] MED LIST changes: +OXYB10TA PO; +PRED1SUS EACH EYE; +RALO1TAB PO; +TOVI8TAB PO; +TROS60CA2 PO
[2017-04-03 12:13] LABS: AUTOMATED NEUTROPHIL # 2.5 TH/MM3 (1.8-7.7); BASOPHIL % 0.8 % (0.0-2.0); EOSINOPHIL # 0.3 TH/MM3 (0-0.4); HEMATOCRIT 32.3 % (35.0-46.0); HEMO FLAGS DIFF FINAL; LYMPH % 22.8 % (9.0-44.0); MEAN CORPUSCULAR HEMOGLOBIN 29.8 PG (27.0-34.0); MEAN CORPUSCULAR HGB CONC 33.1 % (32.0-36.0); MONO % 10.5 % (0.0-8.0); NEUT % 57.9 % (16.0-70.0); PLATELET COUNT 163 TH/MM3 (150-450); RED BLOOD COUNT 3.59 MIL/MM3 (4.00-5.30); RED CELL DISTRIBUTION WIDTH 14.8 % (11.6-17.2); WHITE BLOOD COUNT 4.3 TH/MM3 (4.0-11.0)
[2017-04-03 12:51] LABS: ANION GAP 6 MEQ/L (5-15); AST (GOT) 27 U/L (15-37); BICARBONATE 26.1 MEQ/L (21.0-32.0); BLOOD UREA NITROGEN 16 MG/DL (7-18); CHLORIDE 110 MEQ/L (98-107); GLOMERULAR FILTRATION RATE 57 ML/MIN (>89); GLUCOSE,FASTING 86 MG/DL (74-99); POTASSIUM 4.3 MEQ/L (3.5-5.1); SODIUM (NA) 142 MEQ/L (136-145)
[2017-04-03 12:52] LABS: ALT (GPT) 18 U/L (10-53)
[2017-04-03 13:01] LABS: ALKALINE PHOSPHATASE 47 U/L (45-117); TOTAL BILIRUBIN ADULT 0.3 MG/DL (0.2-1.0)
== END ==
LOC: PLAB 09:55
PROVIDERS: ATTEND Family Medicine
DX: D64.9 Anemia, unspecified (principal); E78.5 Hyperlipidemia, unspecified; R63.4 Abnormal weight loss
CPT/HCPCS: 36415; 80053; 84443; 85025

== ENCOUNTER 2017-05-06 15:52 | Emergency (ER) | payer MEDICARE, OTHER ==
[~2017-05-06] VITALS: Ht 157.5 cm; Wt 53.0 kg
[~2017-05-06 15:52] MED LIST changes: -OXYB10TA PO; -PRED1SUS EACH EYE; -RALO1TAB PO; -TOVI8TAB PO; -TROS60CA2 PO
[2017-05-06 16:12] VITALS: BP 168/73; PULSE 71; RESP 16; TEMP 97.8; O2SAT 99
[2017-05-06] MEDS ORDERED: TROS60CA2 PO (16:23)
[2017-05-06] MEDS ORDERED: RALO1TAB PO (16:23)
[2017-05-06] MEDS ORDERED: PRED1SUS EACH EYE (16:23)
[2017-05-06] MEDS ORDERED: OXYB10TA PO (16:23)
[2017-05-06] MEDS ORDERED: TOVI8TAB PO (16:23)
--- NOTE | 2017-05-06 16:31 | PD ---
HPI Chief Complaint: ENT Complaint Time Seen by Provider: 16:15 Travel History International Travel<30 days: No Contact w/Intl Traveler<30days: No Traveled to known affect area: No History of Present Illness HPI 87-year-old female presents with left-sided nosebleed that started at 10 AM this morning. She states later in the day she had some blood come from her throat so she wanted to get it checked out. She denies any active bleeding at this time. He states she is on Xarelto for her pacemaker. She states that she had a nosebleed and followed with a partner of Dr. Macdonald and they gave her a cream to put in her nose and when she tried to do this with a Q-tip that's when the bleeding started. She denies any other concurrent complaints. She states the bleeding lasted about 5 minutes or so. She denies other modifying factors. PFSH Past Medical History Hx Anticoagulant Therapy: Yes (XARELTO) Atrial Fibrillation: Yes Anxiety: Yes Cardiovascular Problems: Yes (Pacemaker) Chemotherapy: No Cerebrovascular Accident: Yes (TIA) Diabetes: No Diminished Hearing: Yes Gastrointestinal Disorders: Yes (CROHNS- gastroparesis) GERD: Yes Glaucoma: Yes (left eye) Genitourinary: Yes ("bladder problems") Respiratory: No Immunizations Current: No Migraines: Yes Thyroid Disease: Yes Menopausal: Yes Past Surgical History Appendectomy: Yes (194) Cardiac Surgery: Yes (PACEMAKER INSERTION- approx revised 6 yrs ago) Eye Surgery: Yes (CATARACT:RIGHT EYE 2001, LEFT EYE 2008) Hysterectomy: Yes Pacemaker: Yes (1985,three total) Social History Alcohol Use: Yes ("OCCASIONAL GLASS OF RED WINE WITH DINNER.") Tobacco Use: No (quit 30+ yrs ago smoked cigs) Substance Use: No Allergies-Medications (Allergen,Severity, Reaction): Coded Allergies: aspirin (Unverified Allergy, Severe, "throat closes", 05/06/17) codeine (Unverified Allergy, Severe, "throat closes", 05/06/17) iodine (Unverified Allergy, Severe, hives,throat swelling,sob, 05/06/17) morphine (Unverified Allergy, Severe, "throat closes", 05/06/17) potassium iodide (Unverified Allergy, Severe, hives,throat swelling,sob, 05/06/17) povidone-iodine (Unverified Allergy, Severe, hives,throat swelling,sob, ) sodium iodide (Unverified Allergy, Severe, hives,throat swelling,sob, ) sodium iodide (Unverified Allergy, Severe, hives,throat swelling,sob, ) vancomycin (Unverified Allergy, Severe, 05/06/17) cefazolin (Unverified Adverse Reaction, Severe, "head", 05/06/17) penicillin G (Unverified Adverse Reaction, Severe, "swelling of joints", 05/06/17) thiopental (Unverified Adverse Reaction, Severe, "headache", 05/06/17) Reported Meds & Prescriptions Reported Meds & Active Scripts Active Digoxin 0.125 Mg Tab 0.125 Mg PO DAILY Xarelto (Rivaroxaban) 15 Mg Tab 15 Mg PO DAILY Reported Trospium ER 60 Mg Cap 20 Mg PO DAILY Pred Forte Opth 1% (Prednisolone Acetate Opth 1%) 1% Susp 1 Drop EACH EYE BID Toviaz ER (Fesoterodine Fumarate) 8 Mg Dolores 8 Mg PO DAILY Oxybutynin ER 24 HR (Oxybutynin Chloride) 10 Mg Tab 10 Mg PO DAILY Raloxifene (Raloxifene HCl) 60 Mg Tab 60 Mg PO DAILY Durezol Opth (Difluprednate Opth) 0.05% Emul 0.05 Drop LEFT EYE BID Durezol Opth (Difluprednate Opth) 0.05% Emul 1 Drop EACH EYE BID Systane Gel Opth (Polyethylene Glycol-Propylene Opth) 0.4-0.3% Drops 1 Drop EACH EYE DAILY Temazepam 15 Mg Cap 15 Mg PO HS PRN Methenamine Mandelate 500 Mg Tab 500 Mg PO BID Ranitidine (Ranitidine HCl) 150 Mg Tab 150 Mg PO BID Levothyroxine (Levothyroxine Sodium) 50 Mcg Tab 50 Mcg PO DAILY Review of Systems Except as stated in HPI: all other systems reviewed are Neg Physical Exam Narrative GENERAL: Well-nourished, well-developed patient. Well-appearing SKIN: Warm and dry. HEAD: Normocephalic and atraumatic. EYES: No injection or drainage. ENT: No nasal drainage noted. Small amount of dried blood noted to left nare, no blood in posterior oropharynx, no exudate or erythema noted and oropharynx, uvula midline NECK: Supple, trachea midline. CARDIOVASCULAR: Regular rate and rhythm RESPIRATORY: No increased effort, No accessory muscle use. GASTROINTESTINAL: Abdomen soft, nondistended. NEUROLOGICAL: Awake and alert. Moves all extremities and sensory grossly within normal limits. Normal speech. Data Data Last Documented VS Vital Signs Date Time Temp Pulse Resp B/P (MAP) Pulse Ox O2 Delivery O2 Flow Rate FiO2 05/06/17 16:12 97.8 71 16 168/73 (104) 99 Orders Orders Hemoglobin (Hgb) (05/06/17 16:25) Ed Discharge Order (05/06/17 17:00) Labs Laboratory Tests Test 05/06/17 16:46 Hemoglobin 10.1 GM/DL [facility] Medical Decision Making Medical Screen Exam Complete: Yes Emergency Medical Condition: Yes Medical Record Reviewed: Yes (past history confirmed) Interpretation(s) CBC & BMP Diagram 05/06/17 16:46 Differential Diagnosis Epistaxis, URI, anemia... Narrative Course Will check hemoglobin and if stable patient can follow-up outpatient. No active bleeding noted now. Patient is in agreement to this Hemoglobin is stable, no epistaxis here, Patient denies any new complaints and states that they are feeling better. Patient happy with care, all questions answered. Patient knows that follow up is incumbent on them and to return to the emergency room immediately if new or worsening symptoms develop. Patient given strict return precautions, vitals reviewed and are normal, agrees to further workup as an outpatient. Diagnosis Primary Impression: Epistaxis Patient Instructions: General Instructions Additional Instructions: Follow with your ENT Monday, return as needed, do not use any Q-tips or blow your nose, return as needed Med/Other Pt SpecificInfo: No Change to Meds Disposition: 01 DISCHARGE HOME Condition: Stable Ksenia Ramirez MD May 06, 2017 16:31
== END 2017-05-06 17:16 | disposition home or self-care (01) ==
LOC: PHED 15:52
DX: R04.0 Epistaxis (principal); E07.9 Disorder of thyroid, unspecified; H91.90 Unspecified hearing loss, unspecified ear; Z95.0 Presence of cardiac pacemaker; Z79.01 Long term (current) use of anticoagulants; Z86.79 Personal history of other diseases of the circulatory system; Z86.59 Personal history of other mental and behavioral disorders; Z87.19 Personal history of other diseases of the digestive system; Z86.69 Personal history of other diseases of the nervous system and sense organs; Z87.448 Personal history of other diseases of urinary system
CPT/HCPCS: 85018; 99283

== ENCOUNTER 2017-06-26 10:30 | Emergency (ER) | payer MEDICARE, OTHER ==
[~2017-06-26 10:30] MED LIST changes: -MACR100C3 PO; -NITR100C4 PO; +OXYB10TA PO; +PRED1SUS EACH EYE; +RALO1TAB PO; +TOVI8TAB PO; +TROS60CA2 PO
[2017-06-26 10:34] VITALS: BP 146/74; PULSE 111; RESP 16; TEMP 98.5; O2SAT 98
[2017-06-26] MEDS ORDERED: MIRA3350 PO (10:46)
[2017-06-26] MEDS ORDERED: ATRO1SOL11 LEFT EYE (10:46)
--- NOTE | 2017-06-26 10:58 | PD ---
HPI Chief Complaint: GI Complaint Time Seen by Provider: 10:38 Travel History International Travel<30 days: No Contact w/Intl Traveler<30days: No Traveled to known affect area: No History of Present Illness HPI This 87-year-old female is complaining of abdominal pain. She says the pain was bad on Monday and has been going off-and-on since then. At this bad some type pain. It's greater in the left lower quadrant. She does not recall having some pain like this before. She does have a history of gastroparesis and tends to be constipated. She's been taking MiraLAX. She has not had a regular bowel movement since Monday. On Monday and she had some diarrhea which has since stopped. She does get frequent bladder infections. She says she had diverticulitis 30 years ago. She has had an appendectomy and hysterectomy. The pain she is having is crampy in nature and intermittent. She has had poor appetite. Patient is not able to stand straight. The pain PFSH Past Medical History Hx Anticoagulant Therapy: Yes (XARELTO) Atrial Fibrillation: Yes Anxiety: Yes Cardiovascular Problems: Yes (Pacemaker) Chemotherapy: No Cerebrovascular Accident: Yes (TIA) Diabetes: No Diminished Hearing: Yes Gastrointestinal Disorders: Yes (CROHNS- gastroparesis) GERD: Yes Glaucoma: Yes (left eye) Genitourinary: Yes ("bladder problems") Respiratory: No Immunizations Current: No Migraines: Yes Thyroid Disease: Yes ?: Not Menopausal: Yes Past Surgical History Appendectomy: Yes (194) Cardiac Surgery: Yes (PACEMAKER INSERTION- approx revised 6 yrs ago) Eye Surgery: Yes (CATARACT:RIGHT EYE 2001, LEFT EYE 2008) Hysterectomy: Yes Pacemaker: Yes (1985,three total) Social History Alcohol Use: Yes ("OCCASIONAL GLASS OF RED WINE WITH DINNER.") Tobacco Use: No (quit 30+ yrs ago smoked cigs) Substance Use: No Allergies-Medications (Allergen,Severity, Reaction): Coded Allergies: aspirin (Unverified Allergy, Severe, "throat closes", 06/26/17) codeine (Unverified Allergy, Severe, "throat closes", 06/26/17) morphine (Unverified Allergy, Severe, "throat closes", 06/26/17) vancomycin (Unverified Allergy, Severe, 06/26/17) cefazolin (Unverified Adverse Reaction, Severe, "head", 06/26/17) penicillin G (Unverified Adverse Reaction, Severe, "swelling of joints", 06/26/17) thiopental (Unverified Adverse Reaction, Severe, "headache", 06/26/17) Reported Meds & Prescriptions Reported Meds & Active Scripts Active Xarelto (Rivaroxaban) 15 Mg Tab 15 Mg PO DAILY Reported Miralax Powder (Polyethylene Glycol 3350 Powder) 17 Gm Powd 17 Gm PO DAILY Mix and dissolve one measuring cap-ful (17 grams) in water or juice. Atropine Opth Drops 1% Soln 1 Drop LEFT EYE Q6H Trospium ER 60 Mg Cap 20 Mg PO DAILY Raloxifene (Raloxifene HCl) 60 Mg Tab 60 Mg PO DAILY Durezol Opth (Difluprednate Opth) 0.05% Emul 1 Drop EACH EYE BID Temazepam 15 Mg Cap 15 Mg PO HS PRN Methenamine Mandelate 500 Mg Tab 500 Mg PO BID Ranitidine (Ranitidine HCl) 150 Mg Tab 150 Mg PO BID Levothyroxine (Levothyroxine Sodium) 50 Mcg Tab 50 Mcg PO DAILY Review of Systems General / Constitutional: No: Fever, Chills Eyes: No: Diploplia, Blurred Vision HENT: No: Headaches, Vertigo Cardiovascular: No: Chest Pain or Discomfort, Palpitations Respiratory: No: Cough, Shortness of Breath Gastrointestinal: Positive: Nausea, Constipation, No: Vomiting, Diarrhea Genitourinary: No: Urgency, Frequency Musculoskeletal: No: Myalgias, Arthralgias Skin: No Rash, No Itching Neurologic: No: Dizziness Endocrine: No: Heat Intolerance, Cold Intolerance Hematologic/Lymphatic: No: Easy Bruising Physical Exam Narrative GENERAL: Well-developed female SKIN: Focused skin assessment warm/dry. HEAD: Atraumatic. Normocephalic. EYES: Pupils equal and round. No scleral icterus. No injection or drainage. ENT: No nasal bleeding or discharge. Mucous membranes pink and moist. NECK: Trachea midline. No JVD. CARDIOVASCULAR: Regular rate and rhythm. No murmur appreciated. RESPIRATORY: No accessory muscle use. Clear to auscultation. Breath sounds equal bilaterally. GASTROINTESTINAL: Abdomen soft, somewhat diffuse tenderness which is greatest in the left lower quadrant, nondistended. Hepatic and splenic margins not palpable. Rectal was done. She did not tolerate the exam well. The stool is brown and guaiac-negative. She would not tolerate full insertion of the examining finger MUSCULOSKELETAL: No obvious deformities. No clubbing. No cyanosis. No edema. NEUROLOGICAL: Awake and alert. No obvious cranial nerve deficits. Motor grossly within normal limits. Normal speech. PSYCHIATRIC: Appropriate mood and affect; insight and judgment normal. Data Data Last Documented VS Vital Signs Date Time Temp Pulse Resp B/P (MAP) Pulse Ox O2 Delivery O2 Flow Rate FiO2 06/26/17 10:35 16 06/26/17 10:34 98.5 111 146/74 (98) 98 Orders Orders Complete Blood Count With Diff (06/26/17 10:54) Comprehensive Metabolic Panel (06/26/17 10:54) Prothrombin Time / Inr (Pt) (06/26/17 10:54) Act Partial Throm Time (Ptt) (06/26/17 10:54) Urinalysis - C+S If Indicated (06/26/17 10:54) Ct Abd/Pel W Iv Contrast(Rout) (06/26/17 10:54) Sodium Chlor 0.9% 1000 Ml Inj (Ns 1000 M (06/26/17 11:00) Iohexol 350 Inj (Omnipaque 350 Inj) (06/26/17 11:46) Labs Laboratory Tests Test 06/26/17 11:04 White Blood Count 4.1 TH/MM3 Red Blood Count 3.57 MIL/MM3 Hemoglobin 10.4 GM/DL Hematocrit 31.7 % Mean Corpuscular Volume 88.8 FL Mean Corpuscular Hemoglobin 29.0 PG Mean Corpuscular Hemoglobin Concent 32.7 % Red Cell Distribution Width 13.4 % Platelet Count 161 TH/MM3 Mean Platelet Volume 7.1 FL Neutrophils (%) (Auto) 75.9 % Lymphocytes (%) (Auto) 14.0 % Monocytes (%) (Auto) 6.9 % Eosinophils (%) (Auto) 2.4 % Basophils (%) (Auto) 0.8 % Neutrophils # (Auto) 3.1 TH/MM3 Lymphocytes # (Auto) 0.6 TH/MM3 Monocytes # (Auto) 0.3 TH/MM3 Eosinophils # (Auto) 0.1 TH/MM3 Basophils # (Auto) 0.0 TH/MM3 CBC Comment DIFF FINAL Differential Comment Prothrombin Time 11.8 SEC Prothromb Time International Ratio 1.2 RATIO Activated Partial Thromboplast Time 22.4 SEC Blood Urea Nitrogen 13 MG/DL Creatinine 0.90 MG/DL Random Glucose 83 MG/DL Total Protein 6.2 GM/DL Albumin 3.2 GM/DL Calcium Level 8.5 MG/DL Alkaline Phosphatase 47 U/L Aspartate Amino Transf (AST/SGOT) 31 U/L Alanine Aminotransferase (ALT/SGPT) 19 U/L Total Bilirubin 0.5 MG/DL Sodium Level 142 MEQ/L Potassium Level 3.8 MEQ/L Chloride Level 108 MEQ/L Carbon Dioxide Level 25.4 MEQ/L Anion Gap 9 MEQ/L Estimat Glomerular Filtration Rate 59 ML/MIN MDM Medical Decision Making Medical Screen Exam Complete: Yes Emergency Medical Condition: Yes Medical Record Reviewed: Yes Differential Diagnosis Differential includes diverticulitis, constipation, Narrative Course Hemoglobin is 10.4 with a white count of 4000. Her LFTs are normal. INR is 1.2. A CT scan of the abdomen and pelvis with contrast was obtained. There is diverticulosis without diverticulitis. There is constipation. There is a stable lesions in the liver likely hemangiomas. Patient has been taking MiraLAX. 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 He recommends Gastrografin enema. Case discussed with Dr. Mercado of radiology who is at [facility]. The patient will be sent directly to [facility] for Gastrografin enema Diagnosis Primary Impression: Constipation Disposition: 01 DISCHARGE HOME Condition: Stable Lenin Adams MD Jun 26, 2017 10:58
[2017-06-26] MEDS ORDERED: SODIUM CHLOR 0.9% 1000 ML INJ 1,000 ML IV SCH (11:00)
[2017-06-26 11:19] LABS: AUTOMATED NEUTROPHIL # 3.1 TH/MM3 (1.8-7.7); BASOPHIL % 0.8 % (0.0-2.0); EOSINOPHIL # 0.1 TH/MM3 (0-0.4); EOSINOPHIL % 2.4 % (0.0-4.0); HEMATOCRIT 31.7 % (35.0-46.0); HEMO FLAGS DIFF FINAL; LYMPHOCYTE # 0.6 TH/MM3 (1.0-4.8); MEAN CELL VOLUME 88.8 FL (80.0-100.0); MEAN CORPUSCULAR HGB CONC 32.7 % (32.0-36.0); MONO % 6.9 % (0.0-8.0); NEUT % 75.9 % (16.0-70.0); PLATELET COUNT 161 TH/MM3 (150-450); RED BLOOD COUNT 3.57 MIL/MM3 (4.00-5.30); RED CELL DISTRIBUTION WIDTH 13.4 % (11.6-17.2); WHITE BLOOD COUNT 4.1 TH/MM3 (4.0-11.0)
[2017-06-26 11:22] LABS: CHLORIDE 108 MEQ/L (98-107); POTASSIUM 3.8 MEQ/L (3.5-5.1); SODIUM (NA) 142 MEQ/L (136-145)
[2017-06-26 11:26] LABS: ANION GAP 9 MEQ/L (5-15); BICARBONATE 25.4 MEQ/L (21.0-32.0); BLOOD UREA NITROGEN 13 MG/DL (7-18)
[2017-06-26 11:27] LABS: APTT (PATIENT) 22.4 SEC (24.3-30.1); INTERNATIONAL NORMALIZED RATIO 1.2 RATIO; PROTHROMBIN TIME - PATIENT 11.8 SEC (9.8-11.6)
[2017-06-26 11:29] LABS: ALT (GPT) 19 U/L (10-53); AST (GOT) 31 U/L (15-37); GLOMERULAR FILTRATION RATE 59 ML/MIN (>89)
[2017-06-26 11:30] LABS: TOTAL BILIRUBIN ADULT 0.5 MG/DL (0.2-1.0)
[2017-06-26 11:32] LABS: ALKALINE PHOSPHATASE 47 U/L (45-117)
[2017-06-26] MEDS ORDERED: IOHEXOL 350 MG/ML 10 ML VIAL (for RAD DIAG) IVCONTRAST ONE (11:46)
--- NOTE | 2017-06-26 12:05 | RADRPT ---
EXAM DATE/TIME: 06/26/2017 11:40 [facility] COMPARISON: CT ABDOMEN & PELVIS W CONTRAST, April 13, 2015, 8:48. INDICATIONS : Lower abdominal pain. IV CONTRAST: 75 cc Omnipaque 350 (iohexol) IV ORAL CONTRAST: No oral contrast ingested. RADIATION DOSE: 5.20 CTDIvol (mGy) MEDICAL HISTORY : Cardiovascular disease. Cerebrovascular disease. Gastroparesis. SURGICAL HISTORY : Pacemaker. Appendectomy.Hysterectomy. ENCOUNTER: Initial ACUITY: 1 day PAIN SCALE: 6/10 LOCATION: abdomen TECHNIQUE: Volumetric scanning of the abdomen and pelvis was performed. Using automated exposure control and ad justment of the mA and/or kV according to patient size, radiation dose was kept as low as reasonably achievable to obtain optimal diagnostic quality images. DICOM format image data is available electro nically for review and comparison. FINDINGS: LOWER LUNGS: The visualized lower lungs are clear. LIVER: Homogeneous density with enhancing lesion seen adjacent to the falciform ligament, unchanged.. There is no dilation of the biliary tree. No calcified gallstones. SPLEEN: Normal size without lesion. PANCREAS: Within normal limits. KIDNEYS: Normal in size and shape. There is no mass, stone or hydronephrosis. ADRENAL GLANDS: Within normal limits. VASCULAR: There is no aortic aneurysm. BOWEL/MESENTERY: Copious amount stool throughout the large bowel. Diverticulosis of the colon. There is no free intra peritoneal air or fluid. ABDOMINAL WALL: Within normal limits. RETROPERITONEUM: There is no lymphadenopathy. BLADDER: No wall thickening or mass. REPRODUCTIVE: Within normal limits. Uterus is absent. INGUINAL: There is no lymphadenopathy or hernia. MUSCULOSKELETAL: Within normal limits for patient age. CONCLUSION: 1. Diverticulosis without diverticulitis. 2. Constipation. 3. Stable enhancing lesions in the liver likely hemangiomas. 4. Status post hysterectomy. Hong Motta MD on June 26, 2017 at 12:02 Board Certified Radiologist. This report was verified electronically.
[2017-06-26 13:32] VITALS: BP 144/64
== END 2017-06-26 13:40 | disposition home or self-care (01) ==
LOC: PHED 10:30
DX: K59.00 Constipation, unspecified (principal); K31.84 Gastroparesis; I48.91 Unspecified atrial fibrillation; E07.9 Disorder of thyroid, unspecified; Z79.01 Long term (current) use of anticoagulants
CPT/HCPCS: 74177; 80053; 85025; 85610; 85730; 96360; 96361; 99285; J7030; Q9967

== ENCOUNTER → 2017-11-03 | Outpatient (CLI) | payer MEDICARE, OTHER ==
[~2017-11-03] MED LIST changes: +ATRO1SOL11 LEFT EYE; -DIFL0.0512 LEFT EYE; -DIGO0.12 PO; +MIRA3350 PO; -OXYB10TA PO; -PRED1SUS EACH EYE; -SYST0.4D2 EACH EYE; -TOVI8TAB PO
[2017-11-03 13:56] LABS: AUTOMATED NEUTROPHIL # 1.9 TH/MM3 (1.8-7.7); BASOPHIL % 0.6 % (0.0-2.0); EOSINOPHIL # 0.3 TH/MM3 (0-0.4); EOSINOPHIL % 8.3 % (0.0-4.0); HEMATOCRIT 30.4 % (35.0-46.0); HEMOGLOBIN 10.1 GM/DL (11.6-15.3); LYMPH % 29.6 % (9.0-44.0); LYMPHOCYTE # 1.1 TH/MM3 (1.0-4.8); MEAN CELL VOLUME 90.9 FL (80.0-100.0); MEAN CORPUSCULAR HEMOGLOBIN 30.2 PG (27.0-34.0); MEAN CORPUSCULAR HGB CONC 33.3 % (32.0-36.0); MEAN PLATELET VOLUME 8.3 FL (7.0-11.0); MONO % 10.5 % (0.0-8.0); MONOCYTE # 0.4 TH/MM3 (0-0.9); PLATELET COUNT 139 TH/MM3 (150-450); RED BLOOD COUNT 3.34 MIL/MM3 (4.00-5.30); RED CELL DISTRIBUTION WIDTH 14.9 % (11.6-17.2); WHITE BLOOD COUNT 3.7 TH/MM3 (4.0-11.0)
[2017-11-03 14:02] LABS: ALBUMIN 3.4 GM/DL (3.4-5.0); AST (GOT) 39 U/L (15-37); BICARBONATE 28.7 MEQ/L (21.0-32.0); BLOOD UREA NITROGEN 24 MG/DL (7-18); CALCIUM 9.1 MG/DL (8.5-10.1); CHLORIDE 113 MEQ/L (98-107); CHOLESTEROL 180 MG/DL (120-200); CREATININE 1.01 MG/DL (0.50-1.00); GLOMERULAR FILTRATION RATE 52 ML/MIN (>89); GLUCOSE,FASTING 84 MG/DL (74-99); SODIUM (NA) 145 MEQ/L (136-145)
[2017-11-03 14:30] LABS: % SATURATION IRON PROFILE 29.6 % (20-50); ALKALINE PHOSPHATASE 39 U/L (45-117); ALT (GPT) 28 U/L (10-53); HDL CHOLESTEROL 78.1 MG/DL (40.0-60.0); IRON (FE) 96 MCG/DL (50-170); LDL CHOLESTEROL 89 MG/DL (0-99); TOTAL BILIRUBIN ADULT 0.4 MG/DL (0.2-1.0); TOTAL IRON BINDING CAPACITY 325 MCG/DL (250-450); TOTAL PROTEIN 6.4 GM/DL (6.4-8.2); TRIGLYCERIDES 67 MG/DL (42-150)
[2017-11-03 14:31] LABS: FOLATE GREATER THAN 20.0 NG/ML (3.1-17.5)
== END ==
LOC: PLAB 08:56
PROVIDERS: ATTEND Family Medicine
DX: E78.5 Hyperlipidemia, unspecified (principal); E03.9 Hypothyroidism, unspecified; D64.9 Anemia, unspecified
CPT/HCPCS: 36415; 80053; 80061; 82607; 82746; 83540; 83550; 84443; 85025

== ENCOUNTER → 2017-11-22 | Outpatient (CLI) | payer MEDICARE, OTHER | LOC: HRAD 08:56 | DX: N28.89 Other specified disorders of kidney and ureter (principal) ==

== ENCOUNTER 2017-11-23 13:56 | Day surgery (SDC) | payer MEDICARE, OTHER ==
--- NOTE | 2017-11-27 09:24 | RADRPT ---
EXAM DATE/TIME: 11/23/2017 15:42 [facility] COMPARISON : INDICATIONS : Renal mass OBJECTIVE: Temperature: 97 Heart Rate: 88 Blood Pressure: 120/70 Respiratory: 18 Oximetry: 92 PNEUMONIA VACCINE: HISTORY OF PRESENT ILLNESS: 87-year-old female with history of incidentally discovered mass in the superior pole of the right kid farzad measuring less than 1 cm. She is here accompanied by her son to discuss treatment options. She de nies any symptoms including hematuria, flank pain, or unintentional weight loss. PAST MEDICAL HISTORY : 1. Hypothyroidism. 2. Gastroesohpageal reflux disease. PAST SURGICAL HISTORY : 1. Appendectomy. 2. Hysterectomy. 3. Pacemaker 4. cataracts SOCIAL HISTORY : Alcohol usewine daily Tobacco;former. ALLERGIES: 1. Penicillin 2. Ancef 3. Vancomycin creon,sodium pent,fish-iodine,asa MEDICATIONS: 1. Xarelto (Rivaroxaban) 2. synthroid 3. trospium 4. raloxifene 5. ranitidine 6. megace PHYSICAL EXAMINATION: General: Well-nourished and in no acute distress Abdomen: Soft, nontender nondistended. IMAGING STUDIES: CT examination dated 09/14/2017 is reviewed. This demonstrates a very subtle 8-9 mm mass in the anterio r superior pole of the right kidney with subtle interval enlargement or from 02/22/2017 measuring appro ximate 7 mm. ASSESSMENT: 87-year-old female with apparently slow growing solid mass in the superior pole of the right kidney s till measuring less than 1 cm. Extended discussion regarding risks and benefits of cryoablation versu s continued surveillance. Given the apparent slow growth and patient's advanced chronological age, re commend continued surveillance with intervention only if there has been more substantial growth, idea lly with tumor size still under 2 cm. PLAN: Continued surveillance of the sub-1 cm mass in the superior pole of the right kidney with interventio n only if there has been more significant growth. TIME SPENT: 30 minutes. Yakov Reed MD on November 27, 2017 at 9:07 Board Certified Radiologist. This report was verified electronically.
== END 2017-11-23 15:00 | disposition home or self-care (01) ==
LOC: HROP 13:56 → HRIP 13:58 → HROP 15:00
DX: N28.89 Other specified disorders of kidney and ureter (principal); E03.9 Hypothyroidism, unspecified; K21.9 Gastro-esophageal reflux disease without esophagitis; Z71.9 Counseling, unspecified